=== PATIENT | male | born 1960 | race Caucasian/White ===

== ENCOUNTER 2019-01-02 14:20 | Emergency (ER) | payer OTHER ==
[~2019-01-02] VITALS: Ht 180.3 cm; Wt 90.7 kg
[2019-01-02 14:26] VITALS: BP_SYST 146
[2019-01-02 15:40] LABS: ANION GAP 6 (5-15); BASOPHILS % (AUTO) 0.6 % (0.0-2.0); CALCIUM 8.7 mg/dL (8.4-11.0); CHLORIDE 104 mmol/L (98-107); CREATININE 0.95 mg/dL (0.55-1.30); EOSINOPHILS # (AUTO) 0.1 K/uL (0.0-0.4); EOSINOPHILS % (AUTO) 1.4 % (0.0-4.0); GLUCOSE 96 mg/dL (70-99); HEMATOCRIT 40.8 % (36-54); HEMOGLOBIN 13.4 g/dL (14.0-18.0); LYMPHOCYTES # (AUTO) 1.6 K/uL (1.0-5.5); LYMPHOCYTES % (AUTO) 31.9 % (20.5-51.5); MEAN CORPUSCULAR HEMOGLOBIN 28 pg (27-31); MEAN CORPUSCULAR HGB CONC 33 % (32-36); MEAN CORPUSCULAR VOLUME 86 fL (79.0-98.0); MONOCYTES # (AUTO) 0.5 K/uL (0.0-1.0); MONOCYTES % (AUTO) 9.2 % (1.7-9.3); NEUTROPHILS # (AUTO) 2.8 K/uL (1.8-7.7); NEUTROPHILS % (AUTO) 56.9 % (40.0-70.0); PLATELET COUNT (AUTO) 294 K/uL (130-430); POTASSIUM 4.3 mmol/L (3.5-5.1); RED BLOOD CELL COUNT(AUTO) 4.76 MIL/uL (4.2-6.2); RED CELL DISTRIBUTION WIDTH 12.8 % (9.0-15.0); SODIUM SERUM 139 mmol/L (136-145); UREA NITROGEN, BLOOD 16 mg/dL (8-21)
[2019-01-02 15:45] LABS: ALANINE AMINOTRANSFERASE 20 U/L (12-78); ALBUMIN 3.6 g/dL (3.4-4.8); ASPARTATE AMINOTRANSFERASE 18 U/L (10-37); TOTAL BILIRUBIN 0.4 mg/dL (0.0-1.0)
[2019-01-02 15:49] LABS: ALCOHOL, BLOOD < 3 mg/dL (<10); GFR AFRICAN AMERICAN 105 mL/min (>90)
[2019-01-02] MEDS ORDERED: NACL 0.9% 1,000 ML IV ONE (16:00)
[2019-01-02 16:17] LABS: BILIRUBIN,URINE NEGATIVE (NEGATIVE); BLOOD, URINE NEGATIVE (NEGATIVE); CLARITY/URINE CLEAR (CLEAR); COLOR,URINE YELLOW (YELLOW); GLUCOSE,URINE NEGATIVE (NEGATIVE); KETONES,URINE NEGATIVE (NEGATIVE); LEUKOCYTE ESTERASE ,URINE NEGATIVE (NEGATIVE); NITRITE, URINE NEGATIVE (NEGATIVE); PROTEIN URINE NEGATIVE (NEGATIVE); UROBILINOGEN,URINE 0.2 (0.2-1.0)
[2019-01-02] MEDS ORDERED: ACETAMINOPHEN 500 MG TABLET PO ONE (16:30)
[2019-01-02 16:32] LABS: BARBITURATE, URINE NEGATIVE (NEG <=200); METHAMPHETAMINES SCREEN,URINE NEGATIVE (NEG <=500); URINE AMPHETAMINE NEGATIVE (NEG <=500)
[2019-01-02 16:33] LABS: BENZODIAZEPINE, URINE NEGATIVE (NEG <=150); CANNABINOID, URINE NEGATIVE (NEG <=50); COCAINE, URINE NEGATIVE (NEG <=150); OPIATE, URINE NEGATIVE (NEG <=100); PHENCYCLIDINE SCREEN,URINE NEGATIVE (NEG <=25); UR TRICYCLIC ANTIDEPRESSANTS NEGATIVE (NEG <=300); URINE METHADONE NEGATIVE (NEG <=200); URINE OXYCODONE SCREEN NEGATIVE (NEG <=100); URINE PROPOXYPHENE SCREEN NEGATIVE (NEG <=300)
[2019-01-02 17:52] VITALS: BP_SYST 155
== END 2019-01-02 17:50 | disposition home or self-care (01) ==
LOC: SED 14:20
DX: K21.9 Gastro-esophageal reflux disease without esophagitis (principal); E11.9 Type 2 diabetes mellitus without complications; I10 Essential (primary) hypertension; T50.7X5A Adverse effect of analeptics and opioid receptor antagonists, initial encounter; Y92.89 Other specified places as the place of occurrence of the external cause
CPT/HCPCS: 36415; 80053; 80307; 81003; 85025; 96360; 99283; G0482; J7030